=== PATIENT | male | born 1930 | race Caucasian/White ===

== ENCOUNTER 2018-07-27 11:36 | Outpatient (CLI) | payer MEDICARE ==
--- NOTE | 2018-07-27 16:35 | RAD ---
BARIUM SWALLOW ESOPHAGUS: 07/27/18 HISTORY: Gastroesophageal reflux. COMPARISON: None. FINDINGS: The hook and eye machine operator radiograph of the chest was unremarkable for acute process. Dual lead pacer is present. There appears to be a cerclage wire of the left mid clavicle. The patient was brought to the fluoroscopy suite. All questions were answered. The patient was initially given gas forming crystals. Next, thick liquid barium was given. Primary an d secondary peristalsis was very poor with slow transit through the esophagus, primarily by gravity. Numerous tertiary contractions with course through esophagus. There is mild foreshortening of the eso phagus. No extrinsic mass effect. No diverticulum. No Zenker's diverticulum. The Danielito fundoplication is visualized and is normal. No significant reflux or hernia. Next, the patient was given a barium tablet which passed with ease. No stricture. No narrowing. Next, the patient was put in the PAALCIOS position and again given thin liquid barium to continuously drin k. Again, the primary and secondary peristalsis was extremely poor with minimal drainage of the esoph brian in the PALACIOS position. There are very strong tertiary contractions. IMPRESSION: 1. Esophageal dysphagia with very poor primary and secondary peristalsis which are uncoordinated . There are very large tertiary contractions with corkscrew esophagus and diffuse esophageal spasm. 2. Intact Danielito fundoplication without significant hernia formation. 3. In the PALACIOS position, the esophagus was unable to drain very well and empties primarily by gra vity and tertiary contractions. 4. No Zenker's diverticulum. POS: [facility]
== END 2018-07-27 11:37 | disposition home or self-care (01) ==
LOC: RAD 11:36
PROVIDERS: ATTEND Internal Medicine
DX: K21.9 Gastro-esophageal reflux disease without esophagitis (principal); K59.09 Other constipation; R13.14 Dysphagia, pharyngoesophageal phase; K22.4 Dyskinesia of esophagus; R19.2 Visible peristalsis; K22.8 Other specified diseases of esophagus
CPT/HCPCS: 74220

== ENCOUNTER → 2018-09-15 | Day surgery (SDC) | payer MEDICARE | LOC: ENDO/OP 07:43 | PROVIDERS: ATTEND Internal Medicine | DX: K22.4 Dyskinesia of esophagus (principal); K21.9 Gastro-esophageal reflux disease without esophagitis; K59.09 Other constipation; I25.10 Atherosclerotic heart disease of native coronary artery without angina pectoris; F32.9 Major depressive disorder, single episode, unspecified; I10 Essential (primary) hypertension; Z79.82 Long term (current) use of aspirin; Z79.899 Other long term (current) drug therapy; Z95.0 Presence of cardiac pacemaker; Z98.890 Other specified postprocedural states | CPT/HCPCS: 91010 ==

== ENCOUNTER 2018-12-24 14:26 | Outpatient (CLI) | payer MEDICARE ==
--- NOTE | 2018-12-24 15:29 | BD ---
DEXA BONE DENSITY STUDY: Date: 12/24/18 HISTORY: 88-year-old male with osteopenia. FINDINGS: Lumbar Spine: BMD (g/cm2) L1 1.148 T-Score: 0.7 L2 1.203 T-Score: 1.0 L3 1.281 T-Score: 1.6 L4 1.158 T-Score: 0.6 L1-L4 1.199 T-Score: 1.0 Left Femoral Neck: 0.723 T-Score: -1.5 Total Femur: 1.026 T-Score: 0.0 IMPRESSION: Osteopenia. This patient has a 10 year WHO fracture of a major osteoporotic fracture of 6.7% and for a hip fracture of 2.7%. POS: [facility]
== END 2018-12-24 14:27 | disposition home or self-care (01) ==
LOC: BICMAMMO 14:26
PROVIDERS: ATTEND Internal Medicine
DX: Z13.820 Encounter for screening for osteoporosis (principal); M85.859 Other specified disorders of bone density and structure, unspecified thigh
CPT/HCPCS: 77080

== ENCOUNTER 2019-09-24 04:18 | Emergency (ER) | payer MEDICARE ==
[2019-09-24 05:34] LABS: #Basophils 0.1 thou/uL (0.0-0.2); #Lymphocytes 4.7 thou/uL (1.20-3.40); #Monocytes 0.9 thou/uL (0.11-0.59); #Neutrophils 12.8 thou/uL (1.40-6.50); %Basophils 0.5 % (0.0-1.0); %Eosinophils 0.2 % (0.0-10.0); %Lymphocytes 25.1 % (21.0-51.0); %Neutrophils 69.1 % (42.0-75.0); Hemoglobin 13.4 g/dL (14.0-18.0); Mean Corpuscular HGB CONC 32.2 g/dL (32.0-36.0); Mean Corpuscular Volume 96.3 fL (78.0-98.0); Mean Platelet Volume 8.4 fL (7.4-10.4); Platelet Count 153 thou/uL (130-400); Red Blood Cell (RBC) Count 4.33 mill/uL (4.70-6.10); White Blood Cell (WBC) Count 18.6 thou/uL (4.8-10.8)
[2019-09-24 05:52] LABS: ALT (SGPT) 17 U/L (8-55); AST (SGOT) 16 U/L (5-34); Albumin 4.2 g/dL (3.4-4.8); Alkaline Phosphatase 70 U/L (40-110); Anion Gap 13 mmol/L (10-20); BUN (Urea Nitrogen) 31 mg/dL (8.4-25.7); Bilirubin, Total 0.4 mg/dL (0.2-1.2); Calc. Creatinine Clearance 0 mL/min (70-130); Calcium 9.9 mg/dL (7.8-10.44); Carbon Dioxide 28 mmol/L (23-31); Chloride 103 mmol/L (98-107); Estimated GFR-MDRD 60; Globulin 2.6 g/dL (2.4-3.5); Glucose 117 mg/dL (83-110); Magnesium 2.5 mg/dL (1.6-2.6); Potassium 4.2 mmol/L (3.5-5.1); Protein, Total 6.8 g/dL (5.8-8.1); Sodium 140 mmol/L (136-145)
--- NOTE | 2019-09-24 07:56 | RAD ---
EXAM: Single view of the chest HISTORY: Chest pain COMPARISON: None FINDINGS: Single view of the chest shows a normal sized cardiomediastinal silhouette. A pacemaker is seen with its leads in the right atrium and ventricle. Atherosclerotic calcifications are seen in the aorta. There is no evidence of consolidation, mass, or pleural effusion. The bones are unremarka ble. IMPRESSION: No evidence of acute cardiopulmonary disease
== END 2019-09-24 06:58 | disposition home or self-care (01) ==
LOC: ERS 04:18
DX: R00.2 Palpitations (principal); I10 Essential (primary) hypertension; K21.9 Gastro-esophageal reflux disease without esophagitis; Z79.899 Other long term (current) drug therapy
CPT/HCPCS: 71045; 80053; 83735; 84484; 85025; 93005; 96360

== ENCOUNTER 2020-05-30 07:30 | Outpatient (CLI) | payer MEDICARE ==
--- NOTE | 2020-05-30 08:28 | CT ---
CT Abdomen Pelvis W Con History: Left lower quadrant pain. Chronic constipation Comparison: None. Findings: Low-grade atelectasis posterior aspect of both lung bases. No significant pericardial effus ion. Postsurgical changes near the GE junction. 1 cm hypodensity of the spleen not likely clinically significant. Aortic contour is nonaneurysmal. Moderate atherosclerotic plaque. 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 The liver, gallbladder, adrenal glands, pancreas are unremarkable. No hydroureteronephrosis. Prostate is mildly enlarged. No abnormal renal enhancing mass. No dilated loops of large or small bowel. No evidence for bowel obstruction. Moderate stool burden wi thin the ascending colon and transverse colon. The sigmoid colon is tortuous. No retroperitoneal periaortic adenopathy. No acute osseous abnormality. Impression: 1. No acute inflammatory process within the abdomen or pelvis. 2. 1 cm hypodensity of the spleen not likely clinically significant. No follow-up is required. 3. 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 4. No bowel obstruction.
[2020-05-30] MEDS ORDERED: Iopamidol-370 76% 500 ML 1 ML ONE (08:57)
== END 2020-05-30 07:31 | disposition home or self-care (01) ==
LOC: BICCT 07:30
PROVIDERS: ATTEND Physician Assistant Medical
DX: K59.00 Constipation, unspecified (principal); R10.32 Left lower quadrant pain; I71.4 Abdominal aortic aneurysm, without rupture; I77.4 Celiac artery compression syndrome; R93.3 Abnormal findings on diagnostic imaging of other parts of digestive tract
CPT/HCPCS: 74177; 82565; Q9967